=== PATIENT | female | born 1975 | race Caucasian/White ===

== ENCOUNTER 2018-09-28 11:45 | Inpatient (IN) | payer OTHER ==
[~2018-09-28] VITALS: Ht 165.1 cm; Wt 63.5 kg
[2018-09-28] MEDS ORDERED: TOPROL XL25 MG PO (13:06)
[2018-10-08] MEDS ORDERED: COLACE100 MG PO (11:46)
[2018-10-08] MEDS ORDERED: GAS-X125 M1 PO (11:47)
[2018-10-08] MEDS ORDERED: ACETAMINOPHEN-1 EAC2 PO (11:48)
== END 2018-10-08 12:56 | disposition home or self-care (01) | DRG 743 ==
LOC: SURG 10-05 06:25 → O/R 10-05 06:25 → SURG 10-05 11:30
PROVIDERS: ADMIT Obstetrics & Gynecology
PROC: 0USG0ZZ Reposition Vagina, Open Approach (ICD-10-PCS; 2018-10-05)
PROC: 0UT90ZZ Resection of Uterus, Open Approach (ICD-10-PCS; principal; 2018-10-05 11:30)
DX: D25.1 Intramural leiomyoma of uterus (principal); D25.0 Submucous leiomyoma of uterus; D25.2 Subserosal leiomyoma of uterus; N92.0 Excessive and frequent menstruation with regular cycle; D50.8 Other iron deficiency anemias; N89.8 Other specified noninflammatory disorders of vagina; N85.2 Hypertrophy of uterus; Z88.6 Allergy status to analgesic agent

== ENCOUNTER 2021-05-12 13:04 | Outpatient (CLI) | payer OTHER ==
[~2021-05-12 13:04] MED LIST: ACETAMINOPHEN-1 EAC2 PO; COLACE100 MG PO; GAS-X125 M1 PO; TOPROL XL25 MG PO
== END 2021-05-12 13:05 | disposition home or self-care (01) ==
LOC: NUCLEAR 13:04
PROVIDERS: ATTEND Internal Medicine Cardiovascular Disease
DX: M81.0 Age-related osteoporosis without current pathological fracture (principal)

== ENCOUNTER 2024-09-05 10:57 | Outpatient (CLI) | payer OTHER | END 2024-09-05 10:58 | disposition home or self-care (01) | LOC: NUCLEAR 10:57 | DX: M81.0 Age-related osteoporosis without current pathological fracture (principal) ==